=== PATIENT | female | born 1985 | race Caucasian/White ===

== ENCOUNTER 2020-06-23 06:15 | Inpatient (IN) | payer OTHER ==
[2020-06-23] MEDS: LACTATED RINGERS 1,000 ML IV SCH ×2 (06:30→11:34)
[2020-06-23] MEDS ORDERED: LIDOCAINE 0.5% (PF) 5 MG/ML (50 ML SDV) SQ PRN (06:37)
[2020-06-23] MEDS ORDERED: OXYTOCIN 10 UNIT/ML 1 ML VIAL IM PRN (06:37)
[2020-06-23] MEDS ORDERED: TERBUTALINE 1 MG/ML VIAL SQ PRN (06:37)
[2020-06-23] MEDS ORDERED: CARBOPROST TROMETHAMINE 250 MCG/ML 1 ML AMP IM PRN (06:37)
[2020-06-23] MEDS ORDERED: METHYLERGONOVINE 0.2 MG/ML 1 ML AMP IM PRN (06:37)
[2020-06-23 07:02] LABS: Basophils # (A) 0.1 k/uL (0-0.2); Basophils % (A) 1 %; Eosinophils # (A) 0.1 k/uL (0-0.7); Eosinophils % (A) 1 %; HCT 38.1 % (34.0-46.0); HGB 13.2 gm/dL (11.4-16.0); Lymphocytes # (A) 1.7 k/uL (1.0-4.8); Lymphocytes % (A) 22 %; MCH 32.5 pg (25.0-35.0); MCHC 34.7 g/dL (31.0-37.0); MCV 93.5 fL (80.0-100.0); Mean Platelet Volume 8.2; Monocytes # (A) 0.4 k/uL (0-1.0); Monocytes % (A) 5 %; Neutrophils # (A) 5.3 k/uL (1.3-7.7); Neutrophils % (A) 70 %; Platelet Count 200 k/uL (150-450); RBC 4.07 m/uL (3.80-5.40); RDW 13.3 % (11.5-15.5); WBC 7.7 k/uL (3.8-10.6)
[2020-06-23] MEDS: OXYTOCIN 30 UNITS/500 ML NS 30 UNIT in SALINE 1 500ML.BAG IV SCH (07:10)
[2020-06-23] MEDS ORDERED: diphenhydrAMINE 25 MG CAP PO PRN (15:58)
[2020-06-23] MEDS ORDERED: diphenhydrAMINE 50 MG/ML 1 ML VIAL IVP PRN ×2 (15:58)
[2020-06-23] MEDS ORDERED: ZOLPIDEM 5 MG TAB PO PRN (15:58)
[2020-06-23] MEDS ORDERED: SIMETHICONE 80 MG CHEWABLE PO PRN (15:58)
[2020-06-23] MEDS ORDERED: LANOLIN CREAM 5 GM TUBE TOPICAL PRN (15:58)
[2020-06-23] MEDS ORDERED: ACETAMINOPHEN TAB 325 MG TAB PO PRN (15:58)
[2020-06-23] MEDS ORDERED: diphenhydrAMINE 50 MG CAP PO PRN (15:58)
[2020-06-23] MEDS ORDERED: BENZOCAINE/MENTHOL SPRAY 1 GM/SPRAY AEROSOL TOPICAL PRN (15:58)
[2020-06-23] MEDS ORDERED: HYDROCORTISONE 2.5% RECTAL CREAM 30 GM TUBE RECTAL PRN (15:58)
[2020-06-23] MEDS ORDERED: OXYTOCIN 20 UNITS/1000 ML NS 1,000 ML IV SCH (16:00)
--- NOTE | 2020-06-23 16:00 | P.HPOB ---
History of Present Illness H&P Date: 06/23/20 Chief Complaint: IUP @ 39 5/7 weeks This is a 35-year-old 1 para 0 at 39-5/7 weeks that presents to labor and delivery for elective induction of labor. Patient has been receiving routine care which has been essentially uncomplicated. This morning patient notes good movement, denies loss of fluid or vaginal bleeding. She does note an occasional contraction. Patient was checked in the office noted to be 4 cm. On blood work blood type of O+, rubella immune, hepatitis B surface antigen negative, RPR nonreactive, HIV negative, group beta strep cultures were negative. Review of Systems Constitutional: Denies chills, Denies fatigue, Denies fever Ears, nose, mouth and throat: Denies headache Cardiovascular: Reports leg edema Respiratory: Denies dyspnea Gastrointestinal: Denies constipation, Denies diarrhea, Denies nausea, Denies vomiting Genitourinary: Reports Past Medical History Past Medical History: Asthma, Blood Disorder Additional Past Medical History / Comment(s): anemia History of Any Multi-Drug Resistant Organisms: None Reported Past Surgical History: Adenoidectomy, Appendectomy, Tonsillectomy Additional Past Surgical History / Comment(s): 2012 2013 Past Anesthesia/Blood Transfusion Reactions: No Reported Reaction Past Psychological History: No Psychological Hx Reported Smoking Status: Never smoker Past Alcohol Use History: None Reported Past Drug Use History: None Reported - Past Family History Father Family Medical History: No Reported History Medications and Allergies Home Medications Medication Instructions Recorded Confirmed Type Cetirizine HCl [Zyrtec] 1 tab PO DAILY 06/15/20 06/23/20 History Ferrous Sulfate [Iron] 1 tab PO DAILY 06/15/20 06/23/20 History Fish Oil/Dha/Epa [Fish Oil 1,200 1 cap PO DAILY 06/15/20 06/23/20 History mg Fish Oil] Fluticasone Nasal [place] [Flonase 1 sprays NASAL DAILY 06/15/20 06/23/20 History Nasal [place]] Inulin/Cholecalciferol (D3) [Fiber 1 tab PO DAILY 06/15/20 06/15/20 History Gummies-Vitamin D3] Mometasone/Formoterol [Dulera 100 1 inhalation PO DAILY 06/15/20 06/23/20 History Mcg-5 Mcg Inhaler] Montelukast [Singulair] 10 mg PO DAILY 06/15/20 06/23/20 History Pnv,Calcium 72/Iron/Folic Acid 1 tab PO DAILY 06/15/20 06/23/20 History [ Plus Tablet] Allergies Allergy/AdvReac Type Severity Reaction Status Date / Time Sulfa (Sulfonamide Allergy Anaphylaxis Verified 06/23/20 06:35 Antibiotics) Exam Osteopathic Statement: *. No significant issues noted on an osteopathic structural exam other than those noted in the History and Physical/Consult. 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 Amniotomy performed and clear fluid was obtained. Patient is noted to be 4/70/-2 station Results Result Diagrams: 06/23/20 06:50 Assessment and Plan (1) Term Current Visit: Yes Status: Acute Code(s): Z34.90 - ENCNTR FOR SUPRVSN OF NOR MAL , UNSP, UNSP TRIMESTER SNOMED Code(s): 64833536 Plan: Patient is admitted to labor and delivery for planned Pitocin induction of labor. Pitocin is started per hospital protocol, epidural and Stadol are discussed with patient. She will consider both. Interceed spontaneous vaginal delivery.
--- NOTE | 2020-06-23 16:02 | P.PROBDLV ---
Vaginal Delivery Note - . Vaginal Delivery Note: This 35-year-old 1 para 0 presented to labor and delivery at 39 and 5 for elective induction of labor. Patient had been receiving routine care which has been essentially uncomplicated. Patient was admitted to labor and delivery and Pitocin induction of labor was begun per hospital protocol. Amniotomy was performed and clear fluid was obtained. Patient progressed through labor eventually becoming uncomfortable and requesting epidural placement. Epidural was placed without difficulty by the anesthesia department. Patient progressed to complete began pushing and had a normal spontaneous vaginal delivery of a viable female infant at 1541, weight of 7 lbs. 15 oz. and Apgars of 9 and 10 at one and 5 minutes respectively. Infant did have a loose nuchal cord which was delivered through. After two-minute delay the umbilical cord was doubly clamped and cut and was handed off to the maternal abdomen. The placenta was then delivered spontaneously intact with three-vessel cord. On inspection of the patient's vaginal vault a second-degree midline laceration was appreciated. This laceration was then repaired in the usual fashion with 3- 0 repeat. Uterus noted be firm and below the umbilicus at this time. Estimated blood loss 200 mL. All counts were noted to be correct 2 at the end of the delivery Patient and tolerated delivery well.
[2020-06-23] MEDS: IBUPROFEN 600 MG TAB PO PRN (17:32)
[2020-06-23 21:05] VITALS: RESP 16
[2020-06-24 06:56] LABS: Basophils % (A) 0 %; Eosinophils # (A) 0.1 k/uL (0-0.7); Eosinophils % (A) 1 %; HCT 35.5 % (34.0-46.0); Lymphocytes # (A) 1.5 k/uL (1.0-4.8); Lymphocytes % (A) 17 %; MCH 31.6 pg (25.0-35.0); MCHC 33.9 g/dL (31.0-37.0); MCV 93.3 fL (80.0-100.0); Mean Platelet Volume 8.2; Monocytes # (A) 0.3 k/uL (0-1.0); Monocytes % (A) 4 %; Neutrophils # (A) 6.7 k/uL (1.3-7.7); Neutrophils % (A) 77 %; Platelet Count 168 k/uL (150-450); RDW 13.2 % (11.5-15.5); WBC 8.7 k/uL (3.8-10.6)
[2020-06-24] MEDS: IBUPROFEN 600 MG TAB PO PRN ×2 (08:11→14:17)
[2020-06-24] MEDS: SENNOSIDES-DOCUSATE SODIUM 1 EACH TAB PO SCH ×2 (08:12→12:39)
--- NOTE | 2020-06-24 08:23 | P.DS ---
Providers Date of admission: 06/23/20 06:15 Expected date of discharge: 06/24/20 Attending physician: Mei Brennan Primary care physician: Stated None - Discharge Diagnosis(es) (1) Term Current Visit: Yes Status: Acute (2) Status post vaginal delivery Current Visit: Yes Status: Acute (3) Second-degree perineal laceration, with delivery Current Visit: Yes Status: Acute Hospital Course: This is a 35-year-old 1 now para 1 status post normal spontaneous vaginal delivery. Patient presented on 122 for planned induction of labor at 39-5/7 weeks. Patient been receiving routine care which has been essentially uncomplicated. Patient was admitted to labor and delivery and Pitocin induction of labor was begun per hospital protocol. Amniotomy was performed and clear fluid was obtained. Patient progressed through labor eventually becoming uncomfortable and requested epidural placement. Epidural was placed without difficulty by the anesthesia department. Patient progressed to complete began pushing and had a normal spontaneous vaginal delivery of a viable female at 1541, weight of 7 lbs. 15 oz. and Apgars of 9 and 10 at one and 5 minutes respectively. Patient did sustain a second-degree midline laceration which was repaired after delivery. Patient's course has been uneventful. 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 She states her pain is well-controlled and she denies concerns. She would like discharge home at 24 hours. Patient Condition at Discharge: Good Plan - Discharge Summary New Discharge Prescriptions: No Action Montelukast [Singulair] 10 mg PO DAILY Pnv,Calcium 72/Iron/Folic Acid [ Plus Tablet] 1 tab PO DAILY Mometasone/Formoterol [Dulera 100 Mcg-5 Mcg Inhaler] 1 inhalation PO DAILY Fluticasone Nasal [place] [Flonase Nasal [place]] 1 sprays NASAL DAILY Fish Oil/Dha/Epa [Fish Oil 1,200 mg Fish Oil] 1 cap PO DAILY Ferrous Sulfate [Iron] 1 tab PO DAILY Cetirizine HCl [Zyrtec] 1 tab PO DAILY Inulin/Cholecalciferol (D3) [Fiber Gummies-Vitamin D3] 1 tab PO DAILY Discharge Medication List Cetirizine HCl [Zyrtec] 1 tab PO DAILY 06/15/20 [History] Ferrous Sulfate [Iron] 1 tab PO DAILY 06/15/20 [History] Fish Oil/Dha/Epa [Fish Oil 1,200 mg Fish Oil] 1 cap PO DAILY 06/15/20 [History] Fluticasone Nasal [place] [Flonase Nasal [place]] 1 sprays NASAL DAILY 06/15/20 [History] Inulin/Cholecalciferol (D3) [Fiber Gummies-Vitamin D3] 1 tab PO DAILY 06/15/20 [History] Mometasone/Formoterol [Dulera 100 Mcg-5 Mcg Inhaler] 1 inhalation PO DAILY 06/15/20 [History] Montelukast [Singulair] 10 mg PO DAILY 06/15/20 [History] Pnv,Calcium 72/Iron/Folic Acid [ Plus Tablet] 1 tab PO DAILY 06/15/20 [History] Follow up Appointment(s)/Referral(s): Mei Brennan DO [Doctor of Osteopathic Medicine] - 4 Weeks Patient Instructions/Handouts: Vaginal Delivery (GEN), Vaginal Delivery (DC) Activity/Diet/Wound Care/Special Instructions: [id number]-[id number] ibuprofen 600 mg as needed for pain. Patient can expect menstr ual-like bleeding for 4-6 weeks post delivery. If patient should have any concerns prior to her 4 week check she is to call the office. Discharge Disposition: HOME SELF-CARE
[2020-06-24] MEDS: LACTATED RINGERS 1,000 ML IV SCH (12:38)
[2020-06-24] MEDS: OXYTOCIN 30 UNITS/500 ML NS 30 UNIT in SALINE 1 500ML.BAG IV SCH (12:39)
[2020-06-24 17:01] VITALS: BP 117/72; PULSE 71; TEMP 98.2
== END 2020-06-24 17:53 | disposition home or self-care (01) | DRG 807 ==
LOC: 4FBP 06:15
PROVIDERS: ADMIT Obstetrics & Gynecology Obstetrics; ATTEND Obstetrics & Gynecology Obstetrics
PROC: 0KQM0ZZ Repair Perineum Muscle, Open Approach (ICD-10-PCS; principal; 2020-06-23)
PROC: 10907ZC Drainage of Amniotic Fluid, Therapeutic from Products of Conception, Via Natural or Artificial Opening (ICD-10-PCS; principal; 2020-06-23)
PROC: 00HU33Z Insertion of Infusion Device into Spinal Canal, Percutaneous Approach (ICD-10-PCS; principal; 2020-06-23)
PROC: 10E0XZZ Delivery of Products of Conception, External Approach (ICD-10-PCS; principal; 2020-06-23)
PROC: 3E0R3BZ Introduction of Anesthetic Agent into Spinal Canal, Percutaneous Approach (ICD-10-PCS; principal; 2020-06-23)
PROC: 3E033VJ Introduction of Other Hormone into Peripheral Vein, Percutaneous Approach (ICD-10-PCS; principal; 2020-06-23)
DX: O69.81X0 Labor and delivery complicated by cord around neck, without compression, not applicable or unspecified (principal); Z37.0 Single live birth; O70.1 Second degree perineal laceration during delivery; O99.52 Diseases of the respiratory system complicating childbirth; J45.990 Exercise induced bronchospasm; K21.9 Gastro-esophageal reflux disease without esophagitis; D64.9 Anemia, unspecified; O99.62 Diseases of the digestive system complicating childbirth; O99.02 Anemia complicating childbirth; Z3A.39 39 weeks gestation of pregnancy; Z79.899 Other long term (current) drug therapy; Z88.2 Allergy status to sulfonamides; Z87.898 Personal history of other specified conditions; Z90.49 Acquired absence of other specified parts of digestive tract; Z90.89 Acquired absence of other organs
CPT/HCPCS: 85025; 86850; 86900; 86901

== ENCOUNTER → 2020-11-06 | Outpatient (CLI) | payer OTHER | END | disposition home or self-care (01) | LOC: LABWHC1 10:34 | PROVIDERS: ATTEND Allergy & Immunology | DX: L50.8 Other urticaria (principal) | CPT/HCPCS: 36415; 83520 ==